=== PATIENT | male | born 1955 ===

== ENCOUNTER → 2017-11-01 | Outpatient (CLI) | payer OTHER | END | disposition home or self-care (01) | LOC: WOUND MED 08:32 | DX: E10.621 Type 1 diabetes mellitus with foot ulcer (principal); L97.512 Non-pressure chronic ulcer of other part of right foot with fat layer exposed | CPT/HCPCS: 11042; G0463; A4554; A4930; A6216; A6266 ==

== ENCOUNTER → 2017-11-08 | Outpatient (CLI) | payer OTHER | END | disposition home or self-care (01) | LOC: WOUND MED 08:59 | DX: E10.621 Type 1 diabetes mellitus with foot ulcer (principal); L97.512 Non-pressure chronic ulcer of other part of right foot with fat layer exposed | CPT/HCPCS: 11042; A4554; A4930; A6216; A6219; A6266 ==

== ENCOUNTER → 2017-11-15 | Outpatient (CLI) | payer OTHER | END | disposition home or self-care (01) | LOC: WOUND MED 08:53 | DX: E10.621 Type 1 diabetes mellitus with foot ulcer (principal); L97.512 Non-pressure chronic ulcer of other part of right foot with fat layer exposed | CPT/HCPCS: 11042; A4554; A4930; A6216 ==

== ENCOUNTER → 2017-11-22 | Outpatient (CLI) | payer OTHER | END | disposition home or self-care (01) | LOC: WOUND MED 08:36 | DX: E10.621 Type 1 diabetes mellitus with foot ulcer (principal); L97.512 Non-pressure chronic ulcer of other part of right foot with fat layer exposed | CPT/HCPCS: G0463; A4554; A4930; A6216 ==

== ENCOUNTER 2020-11-14 09:00 | Outpatient (CLI) | payer OTHER | END 2020-11-14 11:59 | disposition home or self-care (01) | LOC: WOUND MED 09:00 | PROVIDERS: ATTEND Specialist | DX: E10.621 Type 1 diabetes mellitus with foot ulcer (principal); L97.812 Non-pressure chronic ulcer of other part of right lower leg with fat layer exposed; R60.0 Localized edema | CPT/HCPCS: 11042; A4554; A4930; A6216; A6219 ==

== ENCOUNTER 2020-11-21 10:07 | Outpatient (CLI) | payer OTHER | END 2020-11-21 12:15 | disposition home or self-care (01) | LOC: WOUND MED 10:07 | PROVIDERS: ATTEND Specialist | DX: E10.621 Type 1 diabetes mellitus with foot ulcer (principal); L97.812 Non-pressure chronic ulcer of other part of right lower leg with fat layer exposed; R60.0 Localized edema | CPT/HCPCS: G0463; A4554; A4930; A6216 ==